=== PATIENT | female | born 1980 | race Caucasian/White ===

== ENCOUNTER 2017-12-09 10:44 | Observation (INO) | payer OTHER, SELFPAY ==
[2017-12-09 10:54] VITALS: BMI 25.9
--- NOTE | 2017-12-09 11:56 | C.PDOC ---
History Of Present Illness 37 year old female, with past medical history of anemia (with transfusion in 2012), is referred to ED by PMD secondary to low hemoglobin. Pt notes she felt dizzy 2 days ago while she was at work. She was seen by PMD that day, had blood work done which showed hemoglobin of 7.0. Patient, , states she had an elective yesterday, at which she was also told she was anemic, had D&C procedure, and given Doxycycline and Misoprostol. Denies any vaginal bleeding today, vaginal discharge, abdominal pain, n/v/d, generalized weakness, headache , lightheadedness, or dizziness at this time. Denies any rectal bleeding. 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 Sampson) History/Exam Limitations: no limitations Onset/Duration Of Symptoms: Days (2) Current Symptoms Are (Timing): Gone Reports Recently: Treated By A Physician Recent travel outside of the [place]: No Additional History Per: Patient Past Medical History Reviewed: Historical Data, Nursing Documentation, Vital Signs Vital Signs: Last Vital Signs Temp 98.5 F 12/09/17 16:50 Pulse 93 H 12/09/17 16:50 Resp 18 12/09/17 16:50 BP 106/63 12/09/17 16:50 Pulse Ox 99 12/09/17 16:50 - Medical History PMH: Anemia Family History: States: Unknown Family Hx - Social History Hx Alcohol Use: No Hx Substance Use: No - Immunization History Hx Tetanus Toxoid Vaccination: No Hx Influenza Vaccination: No Hx Pneumococcal Vaccination: No Review Of Systems Except As Marked, All Systems Reviewed And Found Negative. Constitutional: Negative for: Fever, Chills, Weakness Cardiovascular: Negative for: Chest Pain, Light Headedness Gastrointestinal: Negative for: Nausea, Vomiting, Abdominal Pain, Diarrhea, Constipation Genitourinary: Negative for: Dysuria, Frequency, Hematuria, Vaginal Discharge, Vaginal Bleeding Musculoskeletal: Negative for: Back Pain Neurological: Negative for: Headache, Dizziness Physical Exam - Physical Exam Appears: Non-toxic, No Acute Distress Skin: Normal Color, Warm, Dry Head: Atraumatic, Normacephalic Eye(s): bilateral: PERRL, EOMI, Conjunctiva Pale Nose: Normal Oral Mucosa: Moist Neck: Normal ROM, Supple Chest: Symmetrical Cardiovascular: Rhythm Regular, No Murmur Respiratory: Normal Breath Sounds, No Rales, No Rhonchi, No Wheezing Gastrointestinal/Abdominal: Soft, No Tenderness, No Guarding, No Rebound Extremity: Normal ROM Neurological/Psych: Oriented x3, Normal Speech ED Course And Treatment - Laboratory Results Result Diagrams: 12/09/17 12:40 12/09/17 12:40 O2 Sat by Pulse Oximetry: 100 (RA) Pulse Ox Interpretation: Normal Progress Note: Blood work was ordered and reviewed. Case discussed with Dr Fields, agreed upon plan and admission. 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 - Scribe Statement The provider has reviewed the documentation as recorded by the Scribe Angelika Fields All medical record entries made by the Scribe were at my direction and personally dictated by me. I have reviewed the chart and agree that the record accurately reflects my personal performance of the history, physical exam, medical decision making, and the department course for this patient. I have also personally directed, reviewed, and agree with the discharge instructions and disposition.
[2017-12-09 12:56] LABS: INR 1.2; PROTHROMBIN TIME 12.9 SECONDS (9.7-12.2)
[2017-12-09 12:58] LABS: BASO # 0.1 K/uL (0.0-0.2); BASO % 0.8 % (0.0-2.0); EOS # 0.2 K/uL (0.0-0.7); EOS % 2.3 % (0.0-4.0); LYMPH % 20.5 % (20.0-40.0); MEAN CORPUSCULAR HEMOGLOBIN 17.5 pg (27.0-31.0); MEAN CORPUSCULAR HGB CONC 29.7 g/dL (33.0-37.0); MEAN PLATELET VOLUME 8.7 fL (7.2-11.7); MONO # 0.7 K/uL (0.0-0.8); MONO % 6.8 % (0.0-10.0); NEUT # 6.8 K/uL (1.8-7.0); NEUT % 69.6 % (50.0-75.0); NRBC % 0.1 % (0.0-2.0); RBC 3.9 Mil/uL (3.80-5.20); RED CELL DISTRIBUTION WIDTH 20.9 % (11.5-14.5); WHITE BLOOD COUNT 9.8 K/uL (4.8-10.8)
[2017-12-09 12:59] LABS: HEMOGLOBIN 6.8 g/dL (11.0-16.0)
[2017-12-09 13:20] LABS: ALB/GLOB RATIO 1.2 (1.0-2.1); ALBUMIN 4.4 g/dL (3.5-5.0); ALT/SGPT 26 U/L (9-52); AST/SGOT 29 U/L (14-36); BLOOD UREA NITROGEN 6 mg/dL (7-17); CALCIUM 9.2 mg/dl (8.6-10.4); GFR AFRICAN-AMERICAN > 60; GFR NON-AFRICAN AMERICAN > 60
[2017-12-09 13:30] LABS: MEAN CELL VOLUME 58.9 fL (81.0-99.0)
[2017-12-09 14:38] LABS: IRON 14 ug/dL (37-170)
[2017-12-09 14:48] LABS: % IRON SATURATION 3 (20-55); TOTAL IRON BINDING CAPACITY 496 ug/dL (250-450)
--- NOTE | 2017-12-09 15:12 | CP.PCM.HP ---
History of Present Illness - History of Present Illness History of Present Illness: CC: Weakness HPI: Obtained via Serbian-language interpreters: Khris [id number]; Annamarie [id number] Patient is a 37 year old , LMP (10/10/17), Serbian-speaking female with a history of anemia who presents for low hemoglobin. She states that two days ago, she felt palpitations at work, and then syncopized with no head trauma as she was caught mid-air by her co-worker. She subsequently saw her primary care physicia, who then obtained blood work to check H/H. Patient was told by her PCP to come to the hospital today because her Hgb was 7.0. During the encounter, patient admits to palpitations but denies headaches, dizziness, chest pain, SOB, abdominal pain, nausea, vomiting, diarrhea, constipation (last BM 1 hour prior to exam, nonbloody/nonmelanotic), hematuria, bruising, bleeding. Patient also notes that yesterday, after getting her blood drawn two days ago, she had an elective D&C for an elective at [facility] in [place] due to unwanted . Post-procedure, patient was discharged with Misoprostol 200 mcg PO QID and Doxycycline 100mg PO BID. She has not had any vaginal bleeding since the procedure. Patient has a history of blood transfusion in 2011 due to a hemoglobin of 6. She took iron supplements for a few months after the transfusion but stopped on her own; she doesn't have any reason for stopping the iron supplements. Code status: full code No advance directive If patient is unable to make healthcare decisions for herself, she wants her ex- boyfriend Ean Mae to make decisions for her ([phone]). 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 Vegas SUPERINTENDENT PIER history: Menarche: 13 Triad: 13/duration 6 days/regular every 28 days Denies hx of abnormal pap smear, fibroids or ovarian cysts History of some type of "mass" that has since improved; cannot provide further details OB Hx: : 2001; vaginal delivery; girl; no complications G2: elective D&C November 2017 at 8W4D PMHx: anemia (last transfusion in 2011) PSHx: right inguinal hernia repair (1999), D&C (November 2017) FHx: Paternal grandmother: HTN, DM; Father: HTN; denies history of [place]/CVA Medications: Since yesterday: Misoprostol 200mcg PO QID (took one tablet), Doxycycline 100mg Allergies: denies Social History: Lives with daughter, works at [employer]. Denies current or former of tobacco, ETOH and illicit drugs Present on Admission - Present on Admission Any Indicators Present on Admission: No Past Patient History - Past Social History Smoking Status: Never Smoked - HEMATOLOGICAL/ONCOLOGICAL Hx Anemia: Yes - PSYCHIATRIC Hx Substance Use: No - SURGICAL HISTORY Hx Surgeries: Yes Hx Herniorrhaphy: Yes Meds Allergies/Adverse Reactions: Allergies Allergy/AdvReac Type Severity Reaction Status Date / Time No Known Allergies Allergy Verified 12/09/17 10:52 Physical Exam - Constitutional Appears: No Acute Distress - Head Exam Head Exam: ATRAUMATIC, NORMAL INSPECTION - Eye Exam Eye Exam: EOMI, Normal appearance - ENT Exam ENT Exam: Mucous Membranes Moist - Respiratory Exam Respiratory Exam: Clear to Auscultation Bilateral, NORMAL BREATHING PATTERN. absent: Rhonchi, Wheezes, Respiratory Distress - Cardiovascular Exam Cardiovascular Exam: REGULAR RHYTHM, +S1, +S2, Systolic Murmur Additional comments: Ejection murmur heard at left 2nd intercostal - GI/Abdominal Exam GI & Abdominal Exam: Normal Bowel Sounds, Soft. absent: Distended, Firm, Guarding, Tenderness - Exam Speculum exam: NORMAL SPECULUM EXAM (Vaginal spotting on speculum exam ) Bimanual exam: NORMAL BIMANUAL EXAM. absent: Cervical Motion Tendernes, Uterine Enlargement, Uterine Tenderness - Extremities Exam Extremities exam: Positive for: normal inspection. Negative for: calf tenderness, pedal edema - Neurological Exam Neurological exam: Alert, Oriented x3 - Psychiatric Exam Psychiatric exam: Normal Affect, Normal Mood - Skin Skin Exam: Normal Color Results - Vital Signs Recent Vital Signs: Last Vital Signs Temp 98.6 F 12/09/17 10:54 Pulse 99 H 12/09/17 10:54 Resp 16 12/09/17 10:54 BP 116/72 12/09/17 10:54 Pulse Ox 100 12/09/17 14:43 - Labs Result Diagrams: 12/09/17 12:40 12/09/17 12:40 Labs: Laboratory Results - last 24 hr 03/07/1912/09/17 12/09/17 12:40 12:40 12:40 WBC 9.8 RBC 3.90 Hgb 6.8 L D Hct 23.0 L MCV 58.9 L D MCH 17.5 L MCHC 29.7 L RDW 20.9 H Plt Count 393 MPV 8.7 Neut % (Auto) 69.6 Lymph % (Auto) 20.5 [place] % (Auto) 6.8 Eos % (Auto) 2.3 Baso % (Auto) 0.8 Neut # (Auto) 6.8 Lymph # (Auto) 2.0 [place] # (Auto) 0.7 Eos # (Auto) 0.2 Baso # (Auto) 0.1 Retic Count PT 12.9 H INR 1.2 APTT 30 Sodium 140 Potassium 4.0 Chloride 105 Carbon Dioxide 20 L Anion Gap 19 BUN 6 L Creatinine 0.6 L Est GFR ( Amer) > 60 Est GFR (Non-Af Amer) > 60 Random Glucose 88 Calcium 9.2 Iron TIBC % Saturation Total Bilirubin 0.4 AST 29 ALT 26 Alkaline Phosphatase 44 Total Protein 7.9 Albumin 4.4 Globulin 3.5 Albumin/Globulin Ratio 1.2 Stool Occult Blood Blood Type Antibody Screen 12/09/17 12/09/17 12/09/17 12:40 13:40 14:02 WBC RBC Hgb Hct MCV MCH MCHC RDW Plt Count MPV Neut % (Auto) Lymph % (Auto) [place] % (Auto) Eos % (Auto) Baso % (Auto) Neut # (Auto) Lymph # (Auto) [place] # (Auto) Eos # (Auto) Baso # (Auto) Retic Count PT INR APTT Sodium Potassium Chloride Carbon Dioxide Anion Gap BUN Creatinine Est GFR ( Amer) Est GFR (Non-Af Amer) Random Glucose Calcium Iron TIBC % Saturation Total Bilirubin AST ALT Alkaline Phosphatase Total Protein Albumin Globulin Albumin/Globulin Ratio Stool Occult Blood Positive H Blood Type O POSITIVE O POSITIVE Antibody Screen Negative 12/09/17 12/09/17 14:21 14:21 WBC RBC Hgb Hct MCV MCH MCHC RDW Plt Count MPV Neut % (Auto) Lymph % (Auto) [place] % (Auto) Eos % (Auto) Baso % (Auto) Neut # (Auto) Lymph # (Auto) [place] # (Auto) Eos # (Auto) Baso # (Auto) Retic Count 1.9 H PT INR APTT Sodium Potassium Chloride Carbon Dioxide Anion Gap BUN Creatinine Est GFR ( Amer) Est GFR (Non-Af Amer) Random Glucose Calcium Iron 14 L TIBC 496 H % Saturation 3 L Total Bilirubin AST ALT Alkaline Phosphatase Total Protein Albumin Globulin Albumin/Globulin Ratio Stool Occult Blood Blood Type Antibody Screen Assessment & Plan (1) Symptomatic anemia Assessment and Plan: Possibly secondary to history of anemia (Iron deficiency) On admission: H/H: 6.8/23.0 Lab work-up: * Iron: 14 * TIBC: 496 * Reticulocyte: 1.9 * % saturation: 3 * Ferritin: * Stool Occult: Positive * f/u folate, vitamin B12, Parietal cell AB, LDH, Homocysteine, Ferritin, Total direct bilirubin, Intrinsic factor ab Management: * Transfuse 2 units PRBC * Recheck CBC * GI consult, Dr. Lange, for Positive stool occult Status: Acute (2) Status post elective Assessment and Plan: Transvaginal/Pelvis US: Heterogeneous thickened endometrium measures approximately 1.5 cm in diameter. There is evidence of vascularity. Correlate clinically for retained products of conception. Heterogeneous uterine echotexture with suspected intramural fundal fibroid. Small pelvic free fluid, cul-de-sac. Right ovarian follicles/cysts. Medication/Management: * Doxycycline 100mg PO BID for 5 days ( Started 12/08/17) * Cytotec 200mg q4-q6h (Started 12/08/17) : Held until as per Obgyn recommendation. Patient should be discharge with 4 tablets of 200mcg once H/H is stable * Obgyn consultation, Dr. Julian Status: Acute (3) Ejection murmur Assessment and Plan: On examination Possibly due to anemia Will monitor after anemia resolves Status: Acute (4) Prophylactic measure Assessment and Plan: GI:Pepcid 20mg PO once daily DVT: SCDs, anticoagulation contraindicated due to recent D&C and anemia All plans and management discussed with Dr. Trevon Fields Status: Acute
--- NOTE | 2017-12-09 15:18 | US ---
HISTORY: anemia/ h/o d/c COMPARISON: None available. TECHNIQUE: Real-time transabdominal pelvic ultrasound was performed. In addition a transvaginal pelvic ultrasound was necessary to better depict pelvic anatomy. FINDINGS: UTERUS: Measures approximately 9.4 x 5.2 x 6.2 cm. Anteverted. Heterogeneous uterine echotexture. Suspect intramural fundal fibroid measuring approximately 2 cm. ENDOMETRIUM: Thickened heterogeneous endometrium measures approximately 1.5 cm in diameter. Evidence of vascularity. CERVIX: No cervical abnormality identified. RIGHT OVARY: Measures 5.2 x 3.6 x 4.5 cm. Blood flow is demonstrated. 3.6 cm and 1.3 cm follicles/ cysts. LEFT OVARY: Measures 3.0 x 1.5 x 1.6 cm. Blood flow is demonstrated. FREE FLUID: No significant free fluid noted. OTHER FINDINGS: None. IMPRESSION: Heterogeneous thickened endometrium measures approximately 1.5 cm in diameter. There is evidence of vascularity. Correlate clinically for retained products of conception. Heterogeneous uterine echotexture with suspected intramural fundal fibroid. Small pelvic free fluid, cul-de-sac. Right ovarian follicles/cysts.
[2017-12-09 16:00] LABS: BILIRUBIN,DIRECT 0.4 mg/dL (0.0-0.4)
[2017-12-09 16:36] LABS: FERRITIN 2.9 ng/mL
[2017-12-09 17:07] LABS: FOLATE 4.9 ng/mL
--- NOTE | 2017-12-09 18:14 | CP.PCM.CON ---
<Vanessa Law E - Last Filed: 12/09/17 18:12> History of Present Illness - History of Present Illness History of Present Illness: Obgyn Consult note HPI: Obtained via Wallisian-language interpreters: Khris [phone]; Annamarie [id number] Patient is a 37 year old , LMP (10/10/17), Wallisian-speaking female with a history of anemia who presents for low hemoglobin. She states that two days ago, she felt palpitations at work, and then syncopized with no head trauma as she was caught mid-air by her co-worker. She subsequently saw her primary care physicia, who then obtained blood work to check H/H. Patient was told by her PCP to come to the hospital today because her Hgb was 7.0. During the encounter, patient admits to palpitations but denies headaches, dizziness, chest pain, SOB, abdominal pain, nausea, vomiting, diarrhea, constipation (last BM 1 hour prior to exam, nonbloody/nonmelanotic), hematuria, bruising, bleeding. pilot control operator helper consult was placed as patient is status post D &C for elective POD #1. Patient also notes that yesterday, after getting her blood drawn two days ago, she had an elective D&C for an elective at [facility] in [place] due to unwanted . Post- procedure, patient was discharged with Misoprostol 200 mcg PO QID and Doxycycline 100mg PO BID. She has not had any vaginal bleeding since the procedure. 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 Haddad SUPPLY CHAIN DESIGN MANAGER history: Menarche: 13 Triad: 13/duration 6 days/regular every 28 days, LMP (10/10/17) Denies hx of abnormal pap smear, fibroids or ovarian cysts History of some type of "mass" that has since improved; cannot provide further details OB Hx: : 2001; vaginal delivery; girl; no complications G2: elective D&C November 2017 at 8W4D PMHx: anemia (last transfusion in 2011) PSHx: right inguinal hernia repair (1999), D&C (November 2017) FHx: Paternal grandmother: HTN, DM; Father: HTN; denies history of [place]/CVA Medications: Since yesterday: Misoprostol 200mcg PO QID (took one tablet), Doxycycline 100mg Allergies: denies Social History: Lives with daughter, works at [employer]. Denies current or former of tobacco, ETOH and illicit drugs Review of Systems - Constitutional Constitutional: absent: Chills, Fever, Headache, Weakness - EENT Eyes: absent: Blurred Vision, Change in Vision Nose/Mouth/Throat: absent: Nasal Congestion, Nasal Discharge - Cardiovascular Cardiovascular: Palpitations. absent: Chest Pain, Chest Pain at Rest, Diaphoresis, Dyspnea - Respiratory Respiratory: absent: Dyspnea, Hemoptysis, Dyspnea on Exertion, Chest Congestion , Pain with Coughing - Gastrointestinal Gastrointestinal: absent: Abdominal Pain, Excessive Flatus, Hematemesis, Hematochezia, Nausea, Vomiting - Genitourinary Genitourinary: absent: Difficulty Urinating, Dysuria - Reproductive: Female Reproductive:Female: Menses 1-7 Days, Cycle > 4 Weeks Between, Normal Menses - Endocrine Endocrine: Fatigue, Palpitations - Hematologic/Lymphatic Hematologic: absent: Easy Bleeding, Easy Bruising Past Patient History - Past Social History Smoking Status: Never Smoked - HEMATOLOGICAL/ONCOLOGICAL Hx Anemia: Yes - PSYCHIATRIC Hx Substance Use: No - SURGICAL HISTORY Hx Surgeries: Yes Hx Herniorrhaphy: Yes Meds Allergies/Adverse Reactions: Allergies Allergy/AdvReac Type Severity Reaction Status Date / Time No Known Allergies Allergy Verified 12/09/17 10:52 - Medications Medications: Current Medications Doxycycline Hyclate (Doryx) 100 mg PO ONCE ONE PRN Reason: Protocol Stop: 12/09/17 19:01 Doxycycline Hyclate (Doryx) 100 mg PO Q12H JIA PRN Reason: Protocol Physical Exam - Constitutional Appears: No Acute Distress - Head Exam Head Exam: ATRAUMATIC, NORMAL INSPECTION - Eye Exam Eye Exam: EOMI, Normal appearance - ENT Exam ENT Exam: Mucous Membranes Moist - Respiratory Exam Respiratory Exam: Clear to Auscultation Bilateral, NORMAL BREATHING PATTERN. absent: Rhonchi, Wheezes - Cardiovascular Exam Cardiovascular Exam: REGULAR RHYTHM, +S1, +S2 Additional comments: Ejection murmur heard at left 2nd intercostal - GI/Abdominal Exam GI & Abdominal Exam: Normal Bowel Sounds, Soft. absent: Diminished Bowel Sounds , Distended, Firm, Guarding, Tenderness - Exam Speculum exam: NORMAL SPECULUM EXAM. absent: Laceration Bimanual exam: NORMAL BIMANUAL EXAM Additional comments: (Vaginal spotting on speculum exam ) as she is s/p D & C POD #1 - Extremities Exam Extremities exam: Positive for: normal inspection. Negative for: calf tenderness, pedal edema - Neurological Exam Neurological exam: Alert, Normal Gait, Oriented x3 - Psychiatric Exam Psychiatric exam: Normal Affect, Normal Mood - Skin Skin Exam: Normal Color Results - Vital Signs Recent Vital Signs: Last Vital Signs Temp 98.5 F 12/09/17 16:50 Pulse 93 H 12/09/17 16:50 Resp 18 12/09/17 16:50 BP 106/63 12/09/17 16:50 Pulse Ox 100 12/09/17 18:10 - Labs Result Diagrams: 12/09/17 12:40 12/09/17 12:40 Labs: Laboratory Results - last 24 hr 12/09/17 12/09/17 12/09/17 12:40 12:40 12:40 WBC 9.8 RBC 3.90 Hgb 6.8 L D Hct 23.0 L MCV 58.9 L D MCH 17.5 L MCHC 29.7 L RDW 20.9 H Plt Count 393 MPV 8.7 Neut % (Auto) 69.6 Lymph % (Auto) 20.5 [place] % (Auto) 6.8 Eos % (Auto) 2.3 Baso % (Auto) 0.8 Neut # (Auto) 6.8 Lymph # (Auto) 2.0 [place] # (Auto) 0.7 Eos # (Auto) 0.2 Baso # (Auto) 0.1 Retic Count PT 12.9 H INR 1.2 APTT 30 Sodium 140 Potassium 4.0 Chloride 105 Carbon Dioxide 20 L Anion Gap 19 BUN 6 L Creatinine 0.6 L Est GFR ( Amer) > 60 Est GFR (Non-Af Amer) > 60 Random Glucose 88 Calcium 9.2 Iron TIBC % Saturation Ferritin Total Bilirubin 0.4 Direct Bilirubin AST 29 ALT 26 Alkaline Phosphatase 44 Lactate Dehydrogenase Total Protein 7.9 Albumin 4.4 Globulin 3.5 Albumin/Globulin Ratio 1.2 Vitamin B12 Folate Homocysteine Stool Occult Blood Blood Type Antibody Screen 12/09/17 12/09/17 12/09/17 12:40 13:40 14:02 WBC RBC Hgb Hct MCV MCH MCHC RDW Plt Count MPV Neut % (Auto) Lymph % (Auto) [place] % (Auto) Eos % (Auto) Baso % (Auto) Neut # (Auto) Lymph # (Auto) [place] # (Auto) Eos # (Auto) Baso # (Auto) Retic Count PT INR APTT Sodium Potassium Chloride Carbon Dioxide Anion Gap BUN Creatinine Est GFR ( Amer) Est GFR (Non-Af Amer) Random Glucose Calcium Iron TIBC % Saturation Ferritin Total Bilirubin Direct Bilirubin AST ALT Alkaline Phosphatase Lactate Dehydrogenase Total Protein Albumin Globulin Albumin/Globulin Ratio Vitamin B12 Folate Homocysteine Stool Occult Blood Positive H Blood Type O POSITIVE O POSITIVE Antibody Screen Negative Negative 12/09/17 12/09/17 12/09/17 14:21 14:21 14:21 WBC RBC Hgb Hct MCV MCH MCHC RDW Plt Count MPV Neut % (Auto) Lymph % (Auto) [place] % (Auto) Eos % (Auto) Baso % (Auto) Neut # (Auto) Lymph # (Auto) [place] # (Auto) Eos # (Auto) Baso # (Auto) Retic Count 1.9 H PT INR APTT Sodium Potassium Chloride Carbon Dioxide Anion Gap BUN Creatinine Est GFR ( Amer) Est GFR (Non-Af Amer) Random Glucose Calcium Iron 14 L TIBC 496 H % Saturation 3 L Ferritin 2.9 Total Bilirubin Direct Bilirubin 0.4 AST ALT Alkaline Phosphatase Lactate Dehydrogenase 566 Total Protein Albumin Globulin Albumin/Globulin Ratio Vitamin B12 383 Folate 4.9 Homocysteine 10.6 Stool Occult Blood Blood Type Antibody Screen Assessment & Plan - Assessment and Plan (Free Text) Assessment: Patient is a 37 year old , LMP (10/10/17), Wallisian-speaking female with a history of anemia S/P D&C for elective termination at 8 weeks and 4 days, who presents with symptomatic anemia. 1. Stable 2. Transvaginal/Pelvis US: Heterogeneous thickened endometrium measures approximately 1.5 cm in diameter. There is evidence of vascularity. Correlate clinically for retained products of conception. Heterogeneous uterine echotexture with suspected intramural fundal fibroid. Small pelvic free fluid, cul-de-sac. Right ovarian follicles/cysts. 3. Agrees with medical team to transfuse 2 units of PRBC 4. Continue doxycycline 100mg PO BID as she is S/P D&C for elective termination 5. Hold prescribed cytotec for now and discharge with cytotec once H/H is stable 6. F/u with outpatient seaming machine operator, Dr. haddad All plans and management discussed with Dr. Julian Thank you for the consultation <Edin Julian - Last Filed: 12/09/17 21:21> Meds - Medications Medications: Current Medications Doxycycline Hyclate (Doryx) 100 mg PO Q12H JIA PRN Reason: Protocol Famotidine (Pepcid) 20 mg PO DAILY JIA Results - Vital Signs Recent Vital Signs: Last Vital Signs Temp 98.5 F 12/09/17 16:50 Pulse 93 H 12/09/17 16:50 Resp 18 12/09/17 16:50 BP 106/63 12/09/17 16:50 Pulse Ox 98 12/09/17 19:14 - Labs Result Diagrams: 12/09/17 12:40 12/09/17 12:40 Labs: Laboratory Results - last 24 hr 12/09/17 12/09/17 12/09/17 12:40 12:40 12:40 WBC 9.8 RBC 3.90 Hgb 6.8 L D Hct 23.0 L MCV 58.9 L D MCH 17.5 L MCHC 29.7 L RDW 20.9 H Plt Count 393 MPV 8.7 Neut % (Auto) 69.6 Lymph % (Auto) 20.5 [place] % (Auto) 6.8 Eos % (Auto) 2.3 Baso % (Auto) 0.8 Neut # (Auto) 6.8 Lymph # (Auto) 2.0 [place] # (Auto) 0.7 Eos # (Auto) 0.2 Baso # (Auto) 0.1 Retic Count PT 12.9 H INR 1.2 APTT 30 Sodium 140 Potassium 4.0 Chloride 105 Carbon Dioxide 20 L Anion Gap 19 BUN 6 L Creatinine 0.6 L Est GFR ( Amer) > 60 Est GFR (Non-Af Amer) > 60 Random Glucose 88 Calcium 9.2 Iron TIBC % Saturation Ferritin Total Bilirubin 0.4 Direct Bilirubin AST 29 ALT 26 Alkaline Phosphatase 44 Lactate Dehydrogenase Total Protein 7.9 Albumin 4.4 Globulin 3.5 Albumin/Globulin Ratio 1.2 Vitamin B12 Folate Homocysteine Stool Occult Blood Blood Type Antibody Screen 12/09/17 12/09/17 12/09/17 12:40 13:40 14:02 WBC RBC Hgb Hct MCV MCH MCHC RDW Plt Count MPV Neut % (Auto) Lymph % (Auto) [place] % (Auto) Eos % (Auto) Baso % (Auto) Neut # (Auto) Lymph # (Auto) [place] # (Auto) Eos # (Auto) Baso # (Auto) Retic Count PT INR APTT Sodium Potassium Chloride Carbon Dioxide Anion Gap BUN Creatinine Est GFR ( Amer) Est GFR (Non-Af Amer) Random Glucose Calcium Iron TIBC % Saturation Ferritin Total Bilirubin Direct Bilirubin AST ALT Alkaline Phosphatase Lactate Dehydrogenase Total Protein Albumin Globulin Albumin/Globulin Ratio Vitamin B12 Folate Homocysteine Stool Occult Blood Positive H Blood Type O POSITIVE O POSITIVE Antibody Screen Negative Negative 12/09/17 12/09/17 12/09/17 14:21 14:21 14:21 WBC RBC Hgb Hct MCV MCH MCHC RDW Plt Count MPV Neut % (Auto) Lymph % (Auto) [place] % (Auto) Eos % (Auto) Baso % (Auto) Neut # (Auto) Lymph # (Auto) [place] # (Auto) Eos # (Auto) Baso # (Auto) Retic Count 1.9 H PT INR APTT Sodium Potassium Chloride Carbon Dioxide Anion Gap BUN Creatinine Est GFR ( Amer) Est GFR (Non-Af Amer) Random Glucose Calcium Iron 14 L TIBC 496 H % Saturation 3 L Ferritin 2.9 Total Bilirubin Direct Bilirubin 0.4 AST ALT Alkaline Phosphatase Lactate Dehydrogenase 566 Total Protein Albumin Globulin Albumin/Globulin Ratio Vitamin B12 383 Folate 4.9 Homocysteine 10.6 Stool Occult Blood Blood Type Antibody Screen Addendum Addendum: 12/09/17 21:19 Patient with hx of anemia now s/p D&C for TOP ?reatiend products of ultaraoudn patient with no active bleeding now Since patient is severely anemic and not bleeding currently .Transfuse .Once hemodynamically stable and parameters improved could be given 800mcg cytotec po once for retained products witn bleeding precautions thaknk you for the consult
[2017-12-10 08:06] LABS: BASO # 0.1 K/uL (0.0-0.2); BASO % 0.8 % (0.0-2.0); EOS # 0.2 K/uL (0.0-0.7); EOS % 2.9 % (0.0-4.0); LYMPH % 26.5 % (20.0-40.0); MEAN CORPUSCULAR HEMOGLOBIN 21.1 pg (27.0-31.0); MEAN CORPUSCULAR HGB CONC 32.9 g/dL (33.0-37.0); MEAN PLATELET VOLUME 8.8 fL (7.2-11.7); MONO # 0.6 K/uL (0.0-0.8); NEUT # 4.7 K/uL (1.8-7.0); NEUT % 61.8 % (50.0-75.0); RBC 4.3 Mil/uL (3.80-5.20); RED CELL DISTRIBUTION WIDTH 26.3 % (11.5-14.5); WHITE BLOOD COUNT 7.7 K/uL (4.8-10.8)
[2017-12-10 08:09] LABS: MEAN CELL VOLUME 64.1 fL (81.0-99.0)
[2017-12-10 08:26] VITALS: RESP 18; O2SAT 99
[2017-12-10 08:33] LABS: ALB/GLOB RATIO 1.2 (1.0-2.1); ALBUMIN 3.9 g/dL (3.5-5.0); ALT/SGPT 14 U/L (9-52); AST/SGOT 22 U/L (14-36); BLOOD UREA NITROGEN 7 mg/dL (7-17); CALCIUM 8.8 mg/dl (8.6-10.4); GFR AFRICAN-AMERICAN > 60; GFR NON-AFRICAN AMERICAN > 60
--- NOTE | 2017-12-10 09:49 | CP.PCM.DIS ---
<Vanessa Law E - Last Filed: 12/10/17 09:49> Provider - Provider Date of Admission: 12/09/17 14:02 Attending physician: Trevon Fields MD Time Spent in preparation of Discharge (in minutes): 45 Hospital Course - Lab Results Lab Results: Most Recent Lab Values WBC 7.7 K/uL (4.8-10.8) 12/10/17 07:56 RBC 4.30 Mil/uL (3.80-5.20) 12/10/17 07:56 Hgb 9.0 g/dL (11.0-16.0) L D 12/10/17 07:56 Hct 27.5 % (34.0-47.0) L 12/10/17 07:56 MCV 64.1 fL (81.0-99.0) L D 12/10/17 07:56 MCH 21.1 pg (27.0-31.0) L 12/10/17 07:56 MCHC 32.9 g/dL (33.0-37.0) L 12/10/17 07:56 RDW 26.3 % (11.5-14.5) H 12/10/17 07:56 Plt Count 301 K/uL (130-400) 12/10/17 07:56 MPV 8.8 fL (7.2-11.7) 12/10/17 07:56 Neut % (Auto) 61.8 % (50.0-75.0) 12/10/17 07:56 Lymph % (Auto) 26.5 % (20.0-40.0) 12/10/17 07:56 [place] % (Auto) 8.0 % (0.0-10.0) 12/10/17 07:56 Eos % (Auto) 2.9 % (0.0-4.0) 12/10/17 07:56 Baso % (Auto) 0.8 % (0.0-2.0) 12/10/17 07:56 Neut # (Auto) 4.7 K/uL (1.8-7.0) 12/10/17 07:56 Lymph # (Auto) 2.0 K/uL (1.0-4.3) 12/10/17 07:56 [place] # (Auto) 0.6 K/uL (0.0-0.8) 12/10/17 07:56 Eos # (Auto) 0.2 K/uL (0.0-0.7) 12/10/17 07:56 Baso # (Auto) 0.1 K/uL (0.0-0.2) 12/10/17 07:56 Retic Count 1.9 % (0.5-1.5) H 12/09/17 14:21 PT 12.9 SECONDS (9.7-12.2) H 12/09/17 12:40 INR 1.2 12/09/17 12:40 APTT 30 SECONDS (21-34) 12/09/17 12:40 Sodium 138 mmol/L (132-148) 12/10/17 07:56 Potassium 4.0 mmol/L (3.6-5.2) 12/10/17 07:56 Chloride 104 mmol/L (98-107) 12/10/17 07:56 Carbon Dioxide 21 mmol/L (22-30) L 12/10/17 07:56 Anion Gap 16 (10-20) 12/10/17 07:56 BUN 7 mg/dL (7-17) 12/10/17 07:56 Creatinine 0.7 mg/dL (0.7-1.2) 12/10/17 07:56 Est GFR ( Amer) > 60 12/10/17 07:56 Est GFR (Non-Af Amer) > 60 12/10/17 07:56 Random Glucose 77 mg/dL (65-105) 12/10/17 07:56 Calcium 8.8 mg/dl (8.6-10.4) 12/10/17 07:56 Phosphorus 3.8 mg/dL (2.5-4.5) 12/10/17 07:56 Magnesium 1.8 mg/dL (1.6-2.3) 12/10/17 07:56 Iron 14 ug/dL (37-170) L 12/09/17 14:21 TIBC 496 ug/dL (250-450) H 12/09/17 14:21 % Saturation 3 (20-55) L 12/09/17 14:21 Ferritin 2.9 ng/mL 12/09/17 14:21 Total Bilirubin 0.7 mg/dL (0.2-1.3) 12/10/17 07:56 Direct Bilirubin 0.4 mg/dL (0.0-0.4) 12/09/17 14:21 AST 22 U/L (14-36) 12/10/17 07:56 ALT 14 U/L (9-52) 12/10/17 07:56 Alkaline Phosphatase 40 U/L (38-126) 12/10/17 07:56 Lactate Dehydrogenase 566 U/L (313-618) 12/09/17 14:21 Total Protein 7.0 g/dL (6.3-8.3) 12/10/17 07:56 Albumin 3.9 g/dL (3.5-5.0) 12/10/17 07:56 Globulin 3.1 gm/dL (2.2-3.9) 12/10/17 07:56 Albumin/Globulin Ratio 1.2 (1.0-2.1) 12/10/17 07:56 Vitamin B12 383 pg/mL (239-931) 12/09/17 14:21 Folate 4.9 ng/mL 12/09/17 14:21 Homocysteine 10.6 umol/L (4.7-12.6) 12/09/17 14:21 Stool Occult Blood Positive (NEGATIVE) H 12/09/17 13:40 Blood Type O POSITIVE 12/09/17 14:02 Antibody Screen Negative 12/09/17 14:02 - Hospital Course Hospital Course: HPI (As per admission): Obtained via [place]an-language interpreters: Khris [id number]; Annamarie [id number] Patient is a 37 year old , LMP (10/10/17), [place]an-speaking female with a history of anemia who presents for low hemoglobin. She states that two days ago, she felt palpitations at work, and then syncopized with no head trauma as she was caught mid-air by her co-worker. She subsequently saw her primary care physicia, who then obtained blood work to check H/H. Patient was told by her PCP to come to the hospital today because her Hgb was 7.0. During the encounter, patient admits to palpitations but denies headaches, dizziness, chest pain, SOB, abdominal pain, nausea, vomiting, diarrhea, constipation (last BM 1 hour prior to exam, nonbloody/nonmelanotic), hematuria, bruising, bleeding. Patient also notes that yesterday, after getting her blood drawn two days ago, she had an elective D&C for an elective at [facility] in [place] due to unwanted . Post-procedure, patient was discharged with Misoprostol 200 mcg PO QID and Doxycycline 100mg PO BID. She has not had any vaginal bleeding since the procedure. Patient has a history of blood transfusion in 2012 due to a hemoglobin of 6. She took iron supplements for a few months after the transfusion but stopped on her own; she doesn't have any reason for stopping the iron supplements. Hospital Course: Patient was admitted with the diagnosis of symptomatic anemia (H/H:6.8/23.0), which could have also been exacerbated with an elective D & C for TOP on . Subsquently, patient was transfused 2 units of PRBC with stable H./H (9.0/ 27.5), post-transfusion. Over the course of admission, Roll Coverer hospitalist was consulted, who recommended that patient could be given 800mcg cytotec po once for retained products with bleeding precautions, Once hemodynamically stable and parameters improved. Patient had no acute issues or event over the course admission; patient was deemed medically stable and was discharge with appropriate instructions and medications. Pertinent Imaging: Transvaginal/Pelvis US: Heterogeneous thickened endometrium measures approximately 1.5 cm in diameter. There is evidence of vascularity. Correlate clinically for retained products of conception. Heterogeneous uterine echotexture with suspected intramural fundal fibroid. Small pelvic free fluid, cul-de-sac. Right ovarian follicles/cysts. This is a brief summary of event. For a complete course, please refer to the medical records. Discharge Exam - Head Exam Head Exam: ATRAUMATIC, NORMAL INSPECTION - Eye Exam Eye Exam: EOMI, Normal appearance - ENT Exam ENT Exam: Mucous Membranes Moist - Respiratory Exam Respiratory Exam: Clear to PA & Lateral, NORMAL BREATHING PATTERN. absent: Rales, Rhonchi, Wheezes, Respiratory Distress - Cardiovascular Exam Cardiovascular Exam: REGULAR RHYTHM, +S1, +S2, Systolic Murmur Additional comments: Ejection murmur noted on left 2nd intercostal space - GI/Abdominal Exam GI & Abdominal Exam: Normal Bowel Sounds, Soft. absent: Distended, Guarding, Tenderness - Exam Speculum exam: absent: Vaginal Bleeding - Extremities Exam Extremities exam: normal inspection - Neurological Exam Neurological exam: Alert, Normal Gait, Oriented x3 - Psychiatric Exam Psychiatric exam: Normal Affect, Normal Mood - Skin Skin Exam: Normal Color Discharge Plan - Discharge Medications Prescriptions: Ferrous Sulfate 325 mg PO DAILY 30 Days #30 tablet - Follow Up Plan Condition: STABLE Disposition: HOME/ ROUTINE Instructions: Anemia of Chronic Disease Additional Instructions: Please discharge patient home as she has been cleared by medical team Please continue your medications as prescribed by Dr. Vegas 1. Doxycycline 100mg PO BID 2. Cytotec 200mcg PO QID - You might experience some vaginal bleeding with Cytotec, it is normal, if bleeding becomes excessive or your start to experience dizziness, shortness of breath, chest pain or syncope, please return to the hospital and call Dr. Vegas as well to make him aware 3. Ferrous sulfate 325mg PO once daily with breakfast. Please take over the counter vitamin C 500mg daily to help with iron absorption. Please take OTC colace to reduce symptoms of constipation with use of iron supplement Please follow up with Dr. Vegas, financial services consultant on December 22, 2017 Please follow up with Dr. Cruz, your primary care physician within a week of discharge Please obtain a referral for airplane inspector for evaluation of noted ejection murmur on cardiac physical examination for possible echocardiogram Please return to the hospital if you experience excessive vaginal bleeding, shortness of breath, palpitations, dizziness, chest pain, syncope, uterine or lower abdominal tenderness Please take care Referrals: Valentín Vegas MD [Staff Provider] - <Trevon Fields - Last Filed: 12/10/17 15:47> Provider - Provider Date of Admission: 12/09/17 14:02 Attending physician: Trevon Fields MD Hospital Course - Lab Results Lab Results: Most Recent Lab Values WBC 7.7 K/uL (4.8-10.8) 12/10/17 07:56 RBC 4.30 Mil/uL (3.80-5.20) 12/10/17 07:56 Hgb 9.0 g/dL (11.0-16.0) L D 12/10/17 07:56 Hct 27.5 % (34.0-47.0) L 12/10/17 07:56 MCV 64.1 fL (81.0-99.0) L D 12/10/17 07:56 MCH 21.1 pg (27.0-31.0) L 12/10/17 07:56 MCHC 32.9 g/dL (33.0-37.0) L 12/10/17 07:56 RDW 26.3 % (11.5-14.5) H 12/10/17 07:56 Plt Count 301 K/uL (130-400) 12/10/17 07:56 MPV 8.8 fL (7.2-11.7) 12/10/17 07:56 Neut % (Auto) 61.8 % (50.0-75.0) 12/10/17 07:56 Lymph % (Auto) 26.5 % (20.0-40.0) 12/10/17 07:56 [place] % (Auto) 8.0 % (0.0-10.0) 12/10/17 07:56 Eos % (Auto) 2.9 % (0.0-4.0) 12/10/17 07:56 Baso % (Auto) 0.8 % (0.0-2.0) 12/10/17 07:56 Neut # (Auto) 4.7 K/uL (1.8-7.0) 12/10/17 07:56 Lymph # (Auto) 2.0 K/uL (1.0-4.3) 12/10/17 07:56 [place] # (Auto) 0.6 K/uL (0.0-0.8) 12/10/17 07:56 Eos # (Auto) 0.2 K/uL (0.0-0.7) 12/10/17 07:56 Baso # (Auto) 0.1 K/uL (0.0-0.2) 12/10/17 07:56 Retic Count 1.9 % (0.5-1.5) H 12/09/17 14:21 PT 12.9 SECONDS (9.7-12.2) H 12/09/17 12:40 INR 1.2 12/09/17 12:40 APTT 30 SECONDS (21-34) 12/09/17 12:40 Sodium 138 mmol/L (132-148) 12/10/17 07:56 Potassium 4.0 mmol/L (3.6-5.2) 12/10/17 07:56 Chloride 104 mmol/L (98-107) 12/10/17 07:56 Carbon Dioxide 21 mmol/L (22-30) L 12/10/17 07:56 Anion Gap 16 (10-20) 12/10/17 07:56 BUN 7 mg/dL (7-17) 12/10/17 07:56 Creatinine 0.7 mg/dL (0.7-1.2) 12/10/17 07:56 Est GFR ( Amer) > 60 12/10/17 07:56 Est GFR (Non-Af Amer) > 60 12/10/17 07:56 Random Glucose 77 mg/dL (65-105) 12/10/17 07:56 Calcium 8.8 mg/dl (8.6-10.4) 12/10/17 07:56 Phosphorus 3.8 mg/dL (2.5-4.5) 12/10/17 07:56 Magnesium 1.8 mg/dL (1.6-2.3) 12/10/17 07:56 Iron 14 ug/dL (37-170) L 12/09/17 14:21 TIBC 496 ug/dL (250-450) H 12/09/17 14:21 % Saturation 3 (20-55) L 12/09/17 14:21 Ferritin 2.9 ng/mL 12/09/17 14:21 Total Bilirubin 0.7 mg/dL (0.2-1.3) 12/10/17 07:56 Direct Bilirubin 0.4 mg/dL (0.0-0.4) 12/09/17 14:21 AST 22 U/L (14-36) 12/10/17 07:56 ALT 14 U/L (9-52) 12/10/17 07:56 Alkaline Phosphatase 40 U/L (38-126) 12/10/17 07:56 Lactate Dehydrogenase 566 U/L (313-618) 12/09/17 14:21 Total Protein 7.0 g/dL (6.3-8.3) 12/10/17 07:56 Albumin 3.9 g/dL (3.5-5.0) 12/10/17 07:56 Globulin 3.1 gm/dL (2.2-3.9) 12/10/17 07:56 Albumin/Globulin Ratio 1.2 (1.0-2.1) 12/10/17 07:56 Vitamin B12 383 pg/mL (239-931) 12/09/17 14:21 Folate 4.9 ng/mL 12/09/17 14:21 Homocysteine 10.6 umol/L (4.7-12.6) 12/09/17 14:21 Stool Occult Blood Positive (NEGATIVE) H 12/09/17 13:40 Blood Type O POSITIVE 12/09/17 14:02 Antibody Screen Negative 12/09/17 14:02 Attending/Attestation - Attestation I have personally seen and examined this patient.: Yes I have fully participated in the care of the patient.: Yes I have reviewed all pertinent clinical information, including history, physical exam and plan: Yes Notes (Text): 12/10/17 15:46 Patient was seen and examined shortly after resident. Assessment and plan, discharge instructions were gone over with the resident. Trevon Fields D.O.
[2017-12-10 12:37] VITALS: BP 115/74; PULSE 75; TEMP 98
== END 2017-12-10 13:00 | disposition home or self-care (01) ==
LOC: C.ER 10:44 → C.9E 14:02 → C.5S 15:35
PROVIDERS: ADMIT Family Medicine; ATTEND Family Medicine
DX: D64.9 Anemia, unspecified (principal); R19.5 Other fecal abnormalities; R01.1 Cardiac murmur, unspecified
CPT/HCPCS: 36415; 36430; 76830; 76856; 80053; 82248; 82607; 82728; 82746; 83010; 83021; 83090; 83540; 83550; 83615; 83735; 83921; 84100; 85014; 85018; 85025; 85041; 85044; 85610; 85730; 86255; 86340; 86850; 86900; 86920; 99282; G0328; G0378; P9051